=== PATIENT | female | born 2000 | race Caucasian/White ===

== ENCOUNTER 2021-12-08 20:29 | Emergency (ER) | payer MEDICAID ==
[~2021-12-08] VITALS: Ht 160 cm; Wt 50.0 kg
[2021-12-08] MEDS ORDERED: KETOROLAC 60MG/2ML VIAL IM ONE (21:15)
[2021-12-08 21:30] VITALS: BP 130/70
[2021-12-08] MEDS ORDERED: IBUP-2028 MT (22:06)
[2021-12-08] MEDS ORDERED: HYDROCODONE/ACETAMINOPHEN 5/325MG TABLET PO ONE (22:30)
== END 2021-12-08 22:46 | disposition home or self-care (01) ==
LOC: ER 20:29
DX: M54.9 Dorsalgia, unspecified (principal)
CPT/HCPCS: 96372; 99283; J1885; Z7610